=== PATIENT | female | born 1990 | race Caucasian/White ===

== ENCOUNTER 2018-11-28 19:16 | Emergency (ER) | payer OTHER ==
[2018-11-28] MEDS ORDERED: SODIUM CHLORIDE 0.9% 1000ML 1,000 ML IV ONE (19:50)
[2018-11-28 20:08] LABS: APPEARANCE,URINE CLEAR (CLEAR); BILIRUBIN,URINE NEGATIVE (NEGATIVE); COLOR,URINE YELLOW (YELLOW); GLUCOSE, URINE (UA) NEGATIVE (NEGATIVE); KETONES,URINE NEGATIVE (NEGATIVE); LEUKOCYTE ESTERASE ,URINE TRACE (NEGATIVE); NITRATE,URINE NEGATIVE (NEGATIVE); OCCULT BLOOD,URINE NEGATIVE (NEGATIVE); PROTEIN,URINE NEGATIVE (NEGATIVE); UROBILINOGEN,URINE 0.2 mg/dL (0.2-1.0)
[2018-11-28 20:22] LABS: BASOPHILS % (AUTO) 1.1 % (0.0-5.0); EOSINOPHILS % (AUTO) 4.6 % (0.0-8.0); HEMATOCRIT 39.1 % (36-48); LYMPHOCYTES % (AUTO) 27.9 % (21.0-51.0); MEAN CORPUSCULAR HEMOGLOBIN 31.1 pg (27.0-33.0); MEAN CORPUSCULAR HGB CONC 33.5 g/dL (32.0-36.0); MEAN CORPUSCULAR VOLUME 92.9 fL (79-99); MONOCYTES % (AUTO) 6.8 % (3.0-13.0); NEUTROPHILS % (AUTO) 59.6 % (40.0-77.0); PLATELET COUNT (AUTO) 220 K/uL (130-400); RED BLOOD CELL COUNT(AUTO) 4.21 MIL/uL (4.00-5.50); RED CELL DISTRIBUTION WIDTH 13.3 % (11.0-15.5); WHITE BLOOD COUNT (AUTO) 7.9 K/uL (4.8-10.8)
[2018-11-28 20:35] LABS: CREATININE 0.8 mg/dL (0.5-1.5); POTASSIUM 3.3 mmol/L (3.5-5.1)
[2018-11-28 20:40] LABS: ALBUMIN 3.6 g/dL (3.5-5.0); BILIRUBIN,TOTAL 0.4 mg/dL (0.2-1.0)
[2018-11-28 20:42] LABS: RBC,URINE 0-1 /HPF (0-1)
[2018-11-28 20:43] LABS: BACTERIA,URINE Few /HPF (None Seen)
[2018-11-28 20:44] LABS: SQUAMOUS EPITHELIAL CELL,UR Few /HPF (0-2)
[2018-11-28] MEDS ORDERED: KETOROLAC TROMETHAMINE 15MG/ML ONE (21:02)
[2018-11-28] MEDS ORDERED: KETOROLAC TROMETHAMINE 60 MG/2 ML VIAL ONE (21:07)
[2018-11-28 21:26] LABS: ERYTHROCYTE SEDIMENTATION RATE 10 MM/HR (0-20)
== END 2018-11-28 22:33 | disposition home or self-care (01) ==
LOC: EDH 19:16
DX: T81.41XA Infection following a procedure, superficial incisional surgical site, initial encounter (principal); N30.00 Acute cystitis without hematuria; J45.909 Unspecified asthma, uncomplicated; Y83.8 Other surgical procedures as the cause of abnormal reaction of the patient, or of later complication, without mention of misadventure at the time of the procedure; Y92.89 Other specified places as the place of occurrence of the external cause
CPT/HCPCS: 36415; 71045; 73562; 80053; 81001; 81025; 85025; 85651; 86140; 87040 ×2; 87070; 87076; 87077; 87186; 96374; 99285; J1885; J7030

== ENCOUNTER 2018-12-04 12:43 | Inpatient (IN) | payer OTHER ==
[~2018-12-04] VITALS: Ht 172.7 cm; Wt 71.3 kg
[2018-12-04] MEDS ORDERED: SODIUM CHLORIDE 0.9% 50 ML IV ONE (15:10)
[2018-12-04] MEDS ORDERED: CEFTRIAXONE SODIUM 1 GM ONE (15:10)
[2018-12-04 15:20] LABS: BASOPHILS % (AUTO) 1.1 % (0.0-5.0); EOSINOPHILS % (AUTO) 4.2 % (0.0-8.0); HEMATOCRIT 40.1 % (36-48); LYMPHOCYTES % (AUTO) 33.5 % (21.0-51.0); MEAN CORPUSCULAR HEMOGLOBIN 30.7 pg (27.0-33.0); MEAN CORPUSCULAR HGB CONC 33.3 g/dL (32.0-36.0); MEAN CORPUSCULAR VOLUME 92.3 fL (79-99); MONOCYTES % (AUTO) 7.2 % (3.0-13.0); NUCLEATED RED BLOOD CELLS 0.1 % (0.0-0.19); PLATELET COUNT (AUTO) 231 K/uL (130-400); RED BLOOD CELL COUNT(AUTO) 4.35 MIL/uL (4.00-5.50); RED CELL DISTRIBUTION WIDTH 13.4 % (11.0-15.5); WHITE BLOOD COUNT (AUTO) 6.3 K/uL (4.8-10.8)
[2018-12-04 15:28] LABS: CREATININE 0.9 mg/dL (0.5-1.5); POTASSIUM 3.9 mmol/L (3.5-5.1)
[2018-12-04 16:29] LABS: ERYTHROCYTE SEDIMENTATION RATE 9 MM/HR (0-20)
[2018-12-04] MEDS ORDERED: ACETAMINOPHEN 325 MG TAB PO PRN ×2 (17:45)
[2018-12-04] MEDS ORDERED: DOXYCYCLINE 100MG+NS 250ML 250 ML IV SCH (17:45)
[2018-12-04] MEDS ORDERED: ONDANSETRON HCL 4 MG/2 ML VIAL IV PRN (17:45)
[2018-12-04] MEDS ORDERED: ACETAMINOPHEN 325 MG TAB ONE (17:58)
[2018-12-04] MEDS ORDERED: DOXYCYCLINE 100MG+NS 250ML 250 ML IV ONE (19:01)
[2018-12-04 20:15] VITALS: BP 120/75
[2018-12-04] MEDS ORDERED: CEPH250C2 PO (20:23)
[2018-12-04] MEDS ORDERED: ALBUTEROL IH (20:23)
[2018-12-04] MEDS ORDERED: SULF1TAB42 PO (20:23)
[2018-12-04] MEDS: FAMOTIDINE 20MG TAB 20 MG TAB PO SCH (20:46)
[2018-12-04] MEDS: CLINDAMYCIN 600 MG/D5% WATER 50 ML IV SCH (20:48)
[2018-12-04 23:45] VITALS: BP 104/60
[2018-12-05] MEDS: CLINDAMYCIN 600 MG/D5% WATER 50 ML IV SCH ×2 (01:45→08:17)
[2018-12-05 03:50] VITALS: BP 113/49
[2018-12-05 04:28] LABS: HEMATOCRIT 38.9 % (36-48); MEAN CORPUSCULAR HEMOGLOBIN 29.8 pg (27.0-33.0); MEAN CORPUSCULAR HGB CONC 32.4 g/dL (32.0-36.0); MEAN CORPUSCULAR VOLUME 92.1 fL (79-99); PLATELET COUNT (AUTO) 242 K/uL (130-400); RED BLOOD CELL COUNT(AUTO) 4.23 MIL/uL (4.00-5.50); RED CELL DISTRIBUTION WIDTH 13.4 % (11.0-15.5); WHITE BLOOD COUNT (AUTO) 5.5 K/uL (4.8-10.8)
[2018-12-05 05:57] LABS: ERYTHROCYTE SEDIMENTATION RATE 7 MM/HR (0-20)
[2018-12-05 08:01] VITALS: BP 94/60
[2018-12-05] MEDS: ENOXAPARIN SODIUM 40 MG/0.4 ML SYRINGE SQ SCH (08:18)
[2018-12-05] MEDS ORDERED: DOXYCYCLINE 100MG+NS 250ML 250 ML IV SCH (09:00)
--- NOTE | 2018-12-05 09:45 | NUR ---
DR. BARAKAT MD HERE TO SEE PATIENT. DR. BARAKAT SPOKE TO PATIENT AND TOLD HER THAT LEFT KNEE WOUND INFECTION APPEARS TO BE A SUPERFICIAL SKIN INFECTION, MD RECOMMENDS 48 HRS OF IV ANTIBIOTIC THERAPY AND WARM COMPRESSES TO LEFT KNEE. MD DOES NOT RECOMMEND SURGICAL INTERVENTIONS AT THIS TIME.
[2018-12-05] MEDS: FAMOTIDINE 20MG TAB 20 MG TAB PO SCH ×2 (09:50→20:12)
--- NOTE | 2018-12-05 10:15 | NUR ---
DR. KORTNEY POOLE AWARE OF CONSULT.
[2018-12-05 11:01] VITALS: BP 101/60
[2018-12-05] MEDS: CEFAZOLIN SODIUM 1 GM VIAL IVP SCH ×2 (12:34→20:11)
[2018-12-05 15:38] VITALS: BP 95/56
--- NOTE | 2018-12-05 17:05 | NUR ---
CM: In to complete initial eval @ this time. Pt sitting up in bed; upon introduction pt states " I don't see why I need to see you". Offered to come back and complete eval at a more convenient time for her however; she mentions "pls don't". Per primary nurse, pt recently moved to [facility] from [place] and is upset that she has to be admitted. Unable to verify demographics/PLOF or poss dc needs. Addendum: 12/05/18 at 1710 by JOCELYN BOWLING CM Amended: Links added.
[2018-12-05 19:40] VITALS: BP 91/44
[2018-12-05 23:47] VITALS: BP 113/58
[2018-12-06 04:00] VITALS: BP 99/54
[2018-12-06] MEDS: CEFAZOLIN SODIUM 1 GM VIAL IVP SCH ×3 (04:54→20:08)
[2018-12-06 07:30] VITALS: BP 101/50
[2018-12-06] MEDS: FAMOTIDINE 20MG TAB 20 MG TAB PO SCH ×3 (07:52→20:09)
[2018-12-06] MEDS: ENOXAPARIN SODIUM 40 MG/0.4 ML SYRINGE SQ SCH ×2 (07:53→07:56)
[2018-12-06 11:00] VITALS: BP 111/57
[2018-12-06 16:00] VITALS: BP 104/53
[2018-12-06 19:24] VITALS: BP 109/62
[2018-12-06 23:27] VITALS: BP 113/62
--- NOTE | 2018-12-06 23:59 | NUR ---
ROUNDS PATIENT AWAKE AND ALERT IN BED WATCHING TV. NO COMPLAINTS OF PAIN VOICED AT THIS TIME. VITALS STABLE. AFEBRILE. RESP EVEN AND UNLABORED. ON ROOM AIR. NO SIGNS OF DISTRESS NOTED. BED AT THE LOWEST POSITION. SIDE RAILS UP X2. FALL PRECAUTIONS IN PLACE. CALL LIGHT WITHIN REACH. WILL CONTINUE TO BE OBSERVED. Addendum: 12/07/18 at 0003 by CAMPBELL GAVIRIA RN RN Amended: Links added.
[2018-12-07] MEDS: CEFAZOLIN SODIUM 1 GM VIAL IVP SCH ×2 (03:35→12:29)
[2018-12-07 03:40] VITALS: BP 102/53
[2018-12-07 05:27] LABS: HEMATOCRIT 38.1 % (36-48); MEAN CORPUSCULAR HEMOGLOBIN 30.8 pg (27.0-33.0); MEAN CORPUSCULAR HGB CONC 33.3 g/dL (32.0-36.0); MEAN CORPUSCULAR VOLUME 92.6 fL (79-99); NUCLEATED RED BLOOD CELLS 0.1 % (0.0-0.19); PLATELET COUNT (AUTO) 235 K/uL (130-400); RED BLOOD CELL COUNT(AUTO) 4.12 MIL/uL (4.00-5.50); RED CELL DISTRIBUTION WIDTH 13.2 % (11.0-15.5); WHITE BLOOD COUNT (AUTO) 6.1 K/uL (4.8-10.8)
[2018-12-07 05:34] LABS: CREATININE 0.8 mg/dL (0.5-1.5); POTASSIUM 4.2 mmol/L (3.5-5.1)
[2018-12-07 07:46] VITALS: BP 101/72
[2018-12-07] MEDS: FAMOTIDINE 20MG TAB 20 MG TAB PO SCH (09:00)
[2018-12-07] MEDS: ENOXAPARIN SODIUM 40 MG/0.4 ML SYRINGE SQ SCH (09:12)
--- NOTE | 2018-12-07 10:55 | NUR ---
Assist with [employer] met with pt who states she recently moved to [place] with her BR and 2 kids 7yro daughter and 6month old son to live with her mother. Pt states she had Medicaid in [place] and has applied for [place] Medicaid and is pending decision. Pt states that she has spoke to WIC office but can't get assist until Medicaid i place. Sw provided information for WIC office in [place] as requested.
[2018-12-07 11:39] VITALS: BP 120/57
== END 2018-12-07 15:02 | disposition home or self-care (01) | DRG 863 ==
LOC: EDH 12:43 → EDHIP 12:44 → 4BH 20:00
PROVIDERS: ADMIT Internal Medicine; ATTEND Internal Medicine
DX: T81.49XA Infection following a procedure, other surgical site, initial encounter (principal); J45.901 Unspecified asthma with (acute) exacerbation; L03.116 Cellulitis of left lower limb; F17.210 Nicotine dependence, cigarettes, uncomplicated; Y65.8 Other specified misadventures during surgical and medical care; Y92.89 Other specified places as the place of occurrence of the external cause
CPT/HCPCS: 36415; 73700; 80048; 84703; 85025; 85027; 85651; 86140; 87040; G0378; J0690; J0696; J1650; J3490

== ENCOUNTER 2019-02-08 11:30 | Emergency (ER) | payer MEDICAID ==
[~2019-02-08 11:30] MED LIST: ALBUTEROL IH; CEPH250C2 PO; SULF1TAB42 PO
[2019-02-08] MEDS ORDERED: ONDANSETRON HCL 4 MG/2 ML VIAL ONE (12:37)
[2019-02-08 12:52] LABS: BASOPHILS % (AUTO) 1.7 % (0.0-5.0); EOSINOPHILS % (AUTO) 2.1 % (0.0-8.0); LYMPHOCYTES % (AUTO) 23.4 % (21.0-51.0); MEAN CORPUSCULAR HEMOGLOBIN 30.6 pg (27.0-33.0); MEAN CORPUSCULAR HGB CONC 33.5 g/dL (32.0-36.0); MEAN CORPUSCULAR VOLUME 91.6 fL (79-99); MONOCYTES % (AUTO) 6.3 % (3.0-13.0); NEUTROPHILS % (AUTO) 66.5 % (40.0-77.0); PLATELET COUNT (AUTO) 225 K/uL (130-400); RED BLOOD CELL COUNT(AUTO) 4.26 MIL/uL (4.00-5.50); RED CELL DISTRIBUTION WIDTH 13.3 % (11.0-15.5); WHITE BLOOD COUNT (AUTO) 8.2 K/uL (4.8-10.8)
[2019-02-08 13:00] LABS: APPEARANCE,URINE Clear (CLEAR); BILIRUBIN,URINE Negative (NEGATIVE); COLOR,URINE Yellow (YELLOW); GLUCOSE, URINE (UA) Negative (NEGATIVE); KETONES,URINE Negative (NEGATIVE); LEUKOCYTE ESTERASE ,URINE Trace (NEGATIVE); NITRATE,URINE Negative (NEGATIVE); OCCULT BLOOD,URINE Negative (NEGATIVE); PROTEIN,URINE Negative (NEGATIVE)
[2019-02-08 13:46] LABS: BACTERIA,URINE Rare /HPF (None Seen); RBC,URINE 0-1 /HPF (0-1); SQUAMOUS EPITHELIAL CELL,UR Rare /HPF (0-2)
[2019-02-08 13:47] LABS: MUCUS,URINE Few LPF (None Seen)
== END 2019-02-08 15:19 | disposition home or self-care (01) ==
LOC: EDH 11:30
DX: O20.0 Threatened abortion (principal); J45.909 Unspecified asthma, uncomplicated; Z72.0 Tobacco use; Z3A.01 Less than 8 weeks gestation of pregnancy
CPT/HCPCS: 36415; 76801; 81001; 84702; 85025; 86900; 86901; 96374; 99285; J2405

== ENCOUNTER 2019-03-03 20:24 | Emergency (ER) | payer MEDICAID | END 2019-03-03 22:23 | disposition home or self-care (01) | LOC: EDH 20:24 | DX: O9A.211 Injury, poisoning and certain other consequences of external causes complicating pregnancy, first trimester (principal); S83.92XA Sprain of unspecified site of left knee, initial encounter; S73.191A Other sprain of right hip, initial encounter; Z72.0 Tobacco use; Z3A.11 11 weeks gestation of pregnancy; W18.39XA Other fall on same level, initial encounter; Y93.01 Activity, walking, marching and hiking; Y92.89 Other specified places as the place of occurrence of the external cause; Y99.8 Other external cause status | CPT/HCPCS: 76801; 76802 ==

== ENCOUNTER 2019-08-14 14:25 | Observation (INO) | payer MEDICAID ==
[~2019-08-14] VITALS: Ht 167.6 cm; Wt 85.3 kg
[2019-08-14 16:28] LABS: APPEARANCE,URINE CLOUDY (CLEAR); BILIRUBIN,URINE NEGATIVE (NEGATIVE); COLOR,URINE YELLOW (YELLOW); GLUCOSE, URINE (UA) NEGATIVE (NEGATIVE); KETONES,URINE NEGATIVE (NEGATIVE); LEUKOCYTE ESTERASE ,URINE LARGE (NEGATIVE); NITRATE,URINE NEGATIVE (NEGATIVE); OCCULT BLOOD,URINE NEGATIVE (NEGATIVE); PH,URINE 8.5 (5.0-8.0); PROTEIN,URINE NEGATIVE (NEGATIVE); UROBILINOGEN,URINE 0.2 mg/dL (0.2-1.0)
[2019-08-14 16:37] LABS: AMPHET/METH SCREEN,URINE NEGATIVE (NEGATIVE); BARBITURATE SCREEN, URINE NEGATIVE (NEGATIVE); BENZODIAZEPINES SCREEN,URINE NEGATIVE (NEGATIVE); CANNABINOID SCREEN,URINE NEGATIVE (NEGATIVE); COCAINE SCREEN,URINE NEGATIVE (NEGATIVE); OPIATE SCREEN,URINE NEGATIVE (NEGATIVE); PHENCYCLIDINE SCREEN,URINE NEGATIVE (NEGATIVE)
[2019-08-14 16:53] LABS: AMORPHOUS SEDIMENT,UR Moderate /LPF (None Seen)
[2019-08-14 16:54] LABS: SQUAMOUS EPITHELIAL CELL,UR 50-100 /HPF (0-2)
[2019-08-14 16:57] LABS: RBC,URINE 0-1 /HPF (0-1)
[2019-08-14 16:58] LABS: BACTERIA,URINE Moderate /HPF (None Seen); MUCUS,URINE None Seen LPF (None Seen)
[2019-08-14] MEDS ORDERED: LACTATED RINGERS 1000ML IV SCH (17:45)
[2019-08-14 19:30] VITALS: BP 115/65
[2019-08-15] MEDS ORDERED: LACTATED RINGERS 1000ML 1,000 ML IV SCH (00:30)
[2019-08-15] MEDS ORDERED: FERR-82 PO (00:53)
[2019-08-15] MEDS ORDERED: PREN1TAB80 PO (00:53)
[2019-08-15] MEDS ORDERED: ALBU2 PO (00:53)
[2019-08-15] MEDS ORDERED: ACETAMINOPHEN 325 MG TAB PO PRN (01:00)
[2019-08-15] MEDS ORDERED: BENZOCAINE/MENTH/CETYLPYRD CL 1 EACH LOZENGE MM PRN (01:00)
[2019-08-15] MEDS ORDERED: ACETAMINOPHEN 325 MG TAB ONE (01:01)
[2019-08-15] MEDS ORDERED: BENZOCAINE/MENTH/CETYLPYRD CL 1 EACH LOZENGE MM ONE (01:21)
== END 2019-08-15 11:38 | disposition home or self-care (01) ==
LOC: EDH 14:25 → LDH 14:26
PROVIDERS: ADMIT Obstetrics & Gynecology; ATTEND Obstetrics & Gynecology
DX: O62.9 Abnormality of forces of labor, unspecified (principal); O99.513 Diseases of the respiratory system complicating pregnancy, third trimester; O99.333 Smoking (tobacco) complicating pregnancy, third trimester; J45.909 Unspecified asthma, uncomplicated; M79.89 Other specified soft tissue disorders; Z3A.34 34 weeks gestation of pregnancy
CPT/HCPCS: 80305; 81001; 87804 ×2; 87880; 93971; 99284; G0378 ×11; 96360; 96361

== ENCOUNTER 2019-08-25 11:29 | Observation (INO) | payer MEDICAID ==
[~2019-08-25 11:29] MED LIST changes: +ALBU2 PO; +FERR-82 PO; +PREN1TAB80 PO
[2019-08-25] MEDS ORDERED: ALBUTEROL SULFATE 0.083% 2.5 MG/3 ML INH IH ONE (12:51)
[2019-08-25 12:55] LABS: BASOPHILS % (AUTO) 0.5 % (0.0-5.0); EOSINOPHILS % (AUTO) 0.5 % (0.0-8.0); HEMATOCRIT 33.6 % (36-48); LYMPHOCYTES % (AUTO) 15.1 % (21.0-51.0); MEAN CORPUSCULAR HEMOGLOBIN 30.2 pg (27.0-33.0); MEAN CORPUSCULAR VOLUME 91.6 fL (79-99); MONOCYTES % (AUTO) 8.9 % (3.0-13.0); PLATELET COUNT (AUTO) 218 K/uL (130-400); RED BLOOD CELL COUNT(AUTO) 3.67 MIL/uL (4.00-5.50); RED CELL DISTRIBUTION WIDTH 13.7 % (11.0-15.5); WHITE BLOOD COUNT (AUTO) 8.1 K/uL (4.8-10.8)
[2019-08-25 13:48] LABS: ALBUMIN 2.2 g/dL (3.5-5.0); BILIRUBIN,TOTAL 0.3 mg/dL (0.2-1.0); CREATININE 0.7 mg/dL (0.5-1.5); POTASSIUM 3.5 mmol/L (3.5-5.1); TOTAL PROTEIN, SERUM 6.2 g/dL (6.0-8.3)
--- NOTE | 2019-08-25 14:43 | NUR ---
EXTERNAL MONITORING X3 FOR 32 MINUTES. FHR BASELINE BABY A 160 CATEGORY 1 STRIP. FHR BASELINE BABY B 150 WITH CATEGORY 1 STRIP. 1 CONTRACTION PRESENT, MILD TO PALP. SVE 3/40/-3 POSTERIOR. NO BLEEDING OR LEAKING OF FLUID.
--- NOTE | 2019-08-25 14:50 | NUR ---
Luzmaria ANSARI CNM INFORMED OF STRIP AND SVE. STATES SHE WILL TALK WITH DR OVERTON AND CALL ME BACK
--- NOTE | 2019-08-25 15:00 | NUR ---
Luzmaria ANSARI CALLED BACK. STATES TO OFFER PT TO BE ADMITTED TODAY TO BE DELIVERED, BUT HER KIDS CANNOT COME WITH HER, OR TO COME BACK ON FRIDAY AND WE WILL DELIVER HER THEN.
--- NOTE | 2019-08-25 15:10 | NUR ---
DISCUSSED POC WITH PT. PT STATES SHE WOULD RATHER COME BACK ON FRIDAY TO DELIVER.
--- NOTE | 2019-08-25 15:15 | NUR ---
DISCHARGE INSTRUCTIONS GIVEN VERBALLY AND PRINTED. PTL WARNINGS AND KICK COUNTS DISCUSSED. PT TO FOLLOW UP FRIDAY MORNING, NPO AFTER MIDNIGHT. PT VERB AND SIGNED UNDERSTANDING OF INSTRUCTIONS. IV SALINE LOCK D/C'D. SITE WNL. PT SEMAJ PROC WELL.
== END 2019-08-25 15:39 | disposition home or self-care (01) ==
LOC: EDH 11:29 → EDHIP 11:30
PROVIDERS: ADMIT Obstetrics & Gynecology; ATTEND Obstetrics & Gynecology
DX: O62.9 Abnormality of forces of labor, unspecified (principal); O99.513 Diseases of the respiratory system complicating pregnancy, third trimester; J45.909 Unspecified asthma, uncomplicated; Z3A.36 36 weeks gestation of pregnancy
CPT/HCPCS: 36415; 71045; 76815; 80053; 85025; 94640; 99285; G0378

== ENCOUNTER 2020-05-07 20:26 | Observation (INO) | payer MEDICAID ==
[~2020-05-07] VITALS: Ht 165.1 cm; Wt 68.0 kg
[~2020-05-07 20:26] MED LIST changes: -ALBU2 PO; -ALBUTEROL IH; -CEPH250C2 PO; -SULF1TAB42 PO
[2020-05-07 20:47] LABS: APPEARANCE,URINE CLOUDY (CLEAR); BILIRUBIN,URINE NEGATIVE (NEGATIVE); COLOR,URINE RED (YELLOW); GLUCOSE, URINE (UA) NEGATIVE (NEGATIVE); KETONES,URINE 5 mg/dL (NEGATIVE); LEUKOCYTE ESTERASE ,URINE TRACE (NEGATIVE); NITRATE,URINE POSITIVE (NEGATIVE); OCCULT BLOOD,URINE LARGE (NEGATIVE); PH,URINE 5.5 (5.0-8.0); PROTEIN,URINE 100 mg/dL (NEGATIVE)
[2020-05-07 20:47] LABS: BASOPHILS % (AUTO) 0.4 % (0.0-5.0); HEMATOCRIT 37.1 % (36-48); LYMPHOCYTES % (AUTO) 25.8 % (21.0-51.0); MEAN CORPUSCULAR HEMOGLOBIN 30.8 pg (27.0-33.0); MEAN CORPUSCULAR HGB CONC 33.4 g/dL (32.0-36.0); MEAN CORPUSCULAR VOLUME 92.3 fL (79-99); MONOCYTES % (AUTO) 6.2 % (3.0-13.0); NEUTROPHILS % (AUTO) 64.2 % (40.0-77.0); PLATELET COUNT (AUTO) 281 K/uL (130-400); RED BLOOD CELL COUNT(AUTO) 4.02 MIL/uL (4.00-5.50); RED CELL DISTRIBUTION WIDTH 12.4 % (11.0-15.5); WHITE BLOOD COUNT (AUTO) 12.3 K/uL (4.8-10.8)
[2020-05-07 21:17] LABS: INR 0.89 (0.85-1.15); PROTHROMBIN TIME 9.7 SEC (9.6-11.6)
[2020-05-07 21:26] LABS: BACTERIA,URINE Moderate /HPF (None Seen); MUCUS,URINE Few LPF (None Seen); RBC,URINE 51-100 /HPF (0-1)
[2020-05-07 21:27] LABS: SQUAMOUS EPITHELIAL CELL,UR Few /HPF (0-2)
--- NOTE | 2020-05-08 00:30 | NUR ---
Patient; Patient claimed, " I felt so nauseated and I have a lot of cramping pain. I want to drink water and can you give me ice chips." Patient informed we' ll call Dr. Nash to get anti nausea medication order. She was informed that she cannot drink or eat anything as M.D. order for Dilatation and curettage in AM. at 0033 Dr. Nash called informed that patient want anti nausea medication. Received orders to give Phenergan 25 mg IM every 2 hours if needed.. Order noted.
--- NOTE | 2020-05-08 00:30 | NUR ---
Patient; Patient received from ED via stretcher accompanied by ED Nurse. Patient oriented to room call light given she claimed, " I felt so nauseated, felt dehydrated, hard breathing in pain. wants ice chips." She was informed that she cannot eat or drink anything this time. " We will call Dr. Nash for antinausea medication. Plan of care discussed with her. She verbalizes understanding.
[2020-05-08] MEDS ORDERED: MEPERIDINE-PF 50 MG/ML SYG IM PRN (00:45)
[2020-05-08] MEDS ORDERED: CEFAZOLIN SODIUM 1 GM VIAL IVP PRN (00:45)
[2020-05-08] MEDS ORDERED: LACTATED RINGERS 1000ML 1,000 ML IV SCH (00:45)
--- NOTE | 2020-05-08 01:10 | NUR ---
Patient assisted to the bathroom noted with moderate amount of vaginal bleeding and vomited small amount of watery cream white vomitus. Patient claimed,I have asthma and used an albuterol inhaler 2 puff's daily. " Patient assisted back in bed and made her comfortable. She claimed, " I cannot breath Oxygen inhalation at 2 L/min via nasal cannula administered. O2 sat checked 100% 5 minutes after patient claimed I'm OK Oxygen inhalation off.
[2020-05-08] MEDS: PROMETHAZINE HCL 25 MG/ML 1ML AMPULE IM PRN ×2 (01:16→01:42)
[2020-05-08] MEDS: MEPERIDINE-PF 50 MG/ML SYG ONE ×2 (01:17→01:42)
[2020-05-08 01:23] VITALS: BP 122/60
[2020-05-08] MEDS ORDERED: AUD IH (01:25)
[2020-05-08] MEDS ORDERED: CRIS60OI TP (01:25)
--- NOTE | 2020-05-08 01:30 | NUR ---
Pre- op instruction given. Jewelry taken off but one facial piercing and left ring on her finger cannot be pulled out was tight and fingers are slightly swollen.
[2020-05-08 03:30] VITALS: BP 106/45
--- NOTE | 2020-05-08 06:10 | NUR ---
Dr. Nash at bedside plan of care discussed with patient. Ghazal Baldwin RN given report patient brought to OR for Dilatation and Curettage.
--- NOTE | 2020-05-08 06:30 | NUR ---
report received from kasie rincon
[2020-05-08] MEDS ORDERED: LIDOCAINE HCL-MPF 2% 10ML AMP IJ ONE (06:49)
[2020-05-08] MEDS ORDERED: ROCURONIUM 10MG/1ML SYR 10 MG/ML ML ONE (06:49)
[2020-05-08] MEDS ORDERED: SUCCINYLCHOLINE CHLORIDE 20 MG/ML 10 ML VIAL ONE (06:49)
[2020-05-08] MEDS ORDERED: FENTANYL CITRATE PF 50 MCG/1 ML 2ML VIAL ONE (06:50)
[2020-05-08] MEDS ORDERED: MIDAZOLAM HCL 1 MG/ML 2ML VIAL ONE (06:50)
[2020-05-08] MEDS ORDERED: PROPOFOL 10 MG/ML 20ML VIAL IV ONE (06:50)
[2020-05-08] MEDS ORDERED: EPHEDRINE SULFATE 50 MG/ML AMPULE ONE (07:05)
--- NOTE | 2020-05-08 07:05 | NUR ---
REPORT GIVEN TO SHI SIDDIQUI RN
[2020-05-08] MEDS ORDERED: OXYTOCIN 10 USP UNITS/ML ONE (07:07)
--- NOTE | 2020-05-08 08:21 | NUR ---
ASSESSMENT: RECEIVED FROM [facility], AWAKE AND ALERT, DENIES PAIN, STATES SHE IS HUNGRY. EXPLAINED POC, JAYLAN PAD WITH SC VAG BLEEDING. IV FLUIDS INF WELL. CALL BECKER AT HER SIDE. EXPLAINED WILL ORDER REG DIET AND SHE WILL BE DISCHARGED ONCE STABLE.
[2020-05-08 08:30] VITALS: BP 108/56
[2020-05-08 09:00] VITALS: BP 110/66
--- NOTE | 2020-05-08 10:50 | NUR ---
ELIMINATION: AMB TO BR, STEADY GAIT, VOIDED YELLOW URINE, INSTRUCTED ON JAYLAN CARE AND RETURNED DEMONSTRATION.
--- NOTE | 2020-05-08 11:00 | NUR ---
DISCHARGE: DISCHARGE INSTRUCTIONS GIVEN TO PT ON SELF CARE POST D&C, GRIEVING PROCESS, REVIEWED RX FOR MOTRIN AND TO FOLLOW UP WITH DR HERNÁNDEZ ON 05/15 AT 1310 OR SOONER IF NEEDED. UNDERSTANDING VERBALIZED AND COPIES OF ALL INSTRUCTIONS GIVEN TO PT.
[2020-05-08 12:31] VITALS: BP 111/58
--- NOTE | 2020-05-08 12:45 | NUR ---
DISCHARGE: DISCHARGED HOME TO PRIVATE VEHICLE.
== END 2020-05-08 12:45 | disposition home or self-care (01) ==
LOC: EDH 20:26 → EDHIP 20:27 → INTOOBSV 20:27 → WSH 05-08 00:30
PROVIDERS: ADMIT Obstetrics & Gynecology; ATTEND Obstetrics & Gynecology
DX: O03.4 Incomplete spontaneous abortion without complication (principal); J45.909 Unspecified asthma, uncomplicated
CPT/HCPCS: 36415; 59812; 76801; 81001; 84702; 85025; 85610; 85730; 86850; 86900; 86901; 87088; 96360; 96361; 96372; 99284; A4351; G0378 ×12; J0330; J2175; J2250; J2590; J2704; J3010; J3490 ×2; J7030; J7120